=== PATIENT | female | born 1970 | race African-American/Black ===

== ENCOUNTER 2024-04-09 08:46 | Emergency (ER) | payer MEDICAID ==
[~2024-04-09] VITALS: Ht 160 cm; Wt 62.0 kg
[~2024-04-09 08:46] MED LIST: LORA2TAB95
[2024-04-09 09:00] VITALS: O2SAT 98
[2024-04-09] MEDS: TETANUS, DIPHTHERIA, PERTUSSIS VAC/PF 0.5ML (>10YR OLD) IM ONE (09:42)
[2024-04-09] MEDS: LIDOCAINE HCL/PF 1% 10 MG/ML 5ML VIAL INFIL ONE (09:43)
[2024-04-09] MEDS: IBUPROFEN 600MG TABLET PO ONE (09:43)
[2024-04-09] MEDS: BACITRACIN ZINC OINT UDPKT TOP ONE (09:43)
[2024-04-09 12:24] VITALS: BP 154/87; PULSE 101; RESP 14; TEMP 36.6; O2SAT 99
== END 2024-04-09 12:26 | disposition home or self-care (01) ==
LOC: ER 08:46
DX: S61.412A Laceration without foreign body of left hand, initial encounter (principal); F41.9 Anxiety disorder, unspecified; W25.XXXA Contact with sharp glass, initial encounter; Y93.89 Activity, other specified; Y92.89 Other specified places as the place of occurrence of the external cause; Y99.8 Other external cause status
CPT/HCPCS: 73130; 90715; 12002; 90471; 99283; J2003; Z7610 ×3